=== PATIENT | female | born 1975 | race Caucasian/White ===

== ENCOUNTER 2017-04-12 14:19 | Emergency (ER) | payer MEDICARE ==
[2016-07-02 16:57] VITALS: BP 120/89
[~2017-04-12 14:19] MED LIST: ACET-704 PO; CYCL-331 PO
== END 2017-04-12 14:35 | disposition home or self-care (01) ==
LOC: ER 14:19
DX: R10.9 Unspecified abdominal pain (principal); Z53.21 Procedure and treatment not carried out due to patient leaving prior to being seen by health care provider

== ENCOUNTER 2017-04-14 15:47 | Emergency (ER) | payer MEDICARE ==
[~2017-04-14] VITALS: Ht 160 cm; Wt 61.2 kg
[2017-04-14 15:47] VITALS: BP 106/68
--- NOTE | 2017-04-14 17:13 | EKG ---
[address] [address] Test Date: 2017-04-14 Test Time: 16:12:22 Pat Name: EMELINA JIMENES Department: Room: Gender: F Snout Puller: DONNY : 1975 Requested By: PRATEEK BOYLE Order Number: [id number] Reading MD: Yang Alfaro Measurements Intervals Premier Rate: 109 P: 53 CT: 118 QRS: 24 QRSD: 76 T: 38 QT: 320 QTc: 432 Interpretive Statements SINUS TACHYCARDIA NON-SPECIFIC ST/T CHANGES Electronically Signed On 04-20-2017 8:37:11 CDT by Yang Alfaro
[2017-04-14 17:28] LABS: BASO # 0.1 x10^3/uL (0.0-0.2); BASO % 1 % (0-3); EOS # 0.1 x10^3/uL (0.0-0.7); EOS % 1 % (0-3); HEMATOCRIT 41.6 % (36.0-47.0); HEMOGLOBIN 14.1 g/dL (12.0-15.5); LYMPH # 1.5 x10^3/uL (1.0-4.8); LYMPH % 16 % (24-48); MEAN CORPUSCULAR HEMOGLOBIN 31 pg (25-35); MEAN CORPUSCULAR HGB CONC 34 g/dL (31-37); MEAN CORPUSCULAR VOLUME 91 fL (79-100); MONO # 0.6 x10^3/uL (0.0-1.1); MONO % 6 % (0-9); NEUT # 7.3 x10^3uL (1.8-7.7); NEUT % 77 % (31-73); PLATELET COUNT 404 x10^3/uL (140-400); RED BLOOD COUNT 4.56 x10^6/uL (3.50-5.40); RED CELL DISTRIBUTION WIDTH 13.4 % (11.5-14.5); WHITE BLOOD COUNT 9.5 x10^3/uL (4.0-11.0)
[2017-04-14 17:36] LABS: ALBUMIN 3.4 g/dL (3.4-5.0); ALBUMIN/GLOBULIN RATIO 0.9 (1.0-1.7); CREATININE 0.7 mg/dL (0.6-1.0); GFR 91.3; POTASSIUM 3.3 mmol/L (3.5-5.1); TOTAL BILIRUBIN 0.8 mg/dL (0.2-1.0)
[2017-04-14 17:44] LABS: BILIRUBIN,URINE NEG (NEG); CLARITY,URINE CLEAR; COLOR,URINE COLORLESS; GLUCOSE,URINE NEG (NEG); NITRITE,URINE NEG (NEG); RBC,URINE 0 /HPF (0-2); UROBILINOGEN,URINE 0.2 mg/dL (0.2 mg/dL)
[2017-04-14 17:45] LABS: BACTERIA,URINE FEW /HPF (0-FEW); SQUAMOUS EPITHELIAL CELL,UR MANY /LPF; WBC,URINE OCC /HPF (0-4)
[2017-04-14 18:14] LABS: AMPHETAMINE/METHAMPHETAMINE NEG (NEG); BARBITURATES NEG (NEG); BENZODIAZEPINES NEG (NEG); CANNABINOIDS NEG (NEG); COCAINE NEG (NEG); METHADONE NEG (NEG); OPIATES NEG (NEG); PHENCYCLIDINE NEG (NEG)
[2017-04-14 18:16] LABS: ACETAMIN < 2.0 mcg/mL (10-30); ETHANOL 12 mg/dL (0-10)
--- NOTE | 2017-04-14 18:51 | PHYS DOC ---
Past History Past Medical History: Arthritis, Bipolar, Depression, Schizophrenia, Other Past Surgical History: Appendectomy, Hysterectomy, Tubal ligation, Other Smoking: Cigarettes Alcohol Use: None Drug Use: None Adult General Chief Complaint Chief Complaint: OVERDOSE HPI HPI Patient is a 41 year old FEMALE who presents with abusing her prescription medications. She has had prior visits here and at [facility] today (records received). She has chronic abdominal pain for which she has been seeking narcotic pain medications. She also takes chronic benzodiazepine meds. Today she was seen at 1443 PM at [facility]. She was just admitted there 03/30/17 prior to that with abdominal pain. She has had CT and US of the abdomen (all negative) ; EGD in March (negative) and lab. She had a repeat US done today that was normal. PIPIDA scan was also negative. She was given an oxycodone there po. Her meds at home that she has access to include: [place], oxcarbazepine, diazepam, lorazepam, hyoscyamine, methocarbamol. She states that she took her meds today "to make the pain go away". She also drank "a large bottle of alcohol." DENIES suicidal attempt or ideation. She is here with her daughter. Review of Systems Review of Systems Patient not answering specific questions due to sedation Allergies Allergies Allergies Coded Allergies Type Severity Reaction Last Updated Verified Penicillins Allergy Unknown 07/02/16 Yes Sulfa (Sulfonamide Antibiotics) Allergy Unknown 07/02/16 Yes azithromycin Allergy Unknown 07/02/16 Yes hydrocodone Allergy Unknown 07/02/16 Yes ketorolac Allergy Unknown 07/02/16 Yes lamotrigine Allergy Unknown 07/02/16 Yes nitrofurantoin Allergy Unknown 07/02/16 Yes tramadol Allergy Unknown 07/02/16 Yes Physical Exam Physical Exam Constitutional: Well developed, well nourished, no acute distress, non-toxic appearance. Sleepy but easily arousable. HENT: Normocephalic, atraumatic, bilateral external ears normal, oropharynx moist, no oral exudates, nose normal. Eyes: PERRLA, EOMI, conjunctiva normal, no discharge. Neck: Normal range of motion, no tenderness, supple, no stridor. Cardiovascular:Heart rate regular rhythm, no murmur Lungs & Thorax: Bilateral breath sounds clear to auscultation Abdomen: Bowel sounds normal, soft, no tenderness, no masses, no pulsatile masses. Skin: Warm, dry, no erythema, no rash. Back: No tenderness, no CVA tenderness. Extremities: No tenderness, no cyanosis, no clubbing, ROM intact, no edema. Neurologic: Alert and oriented X 3, normal motor function, normal sensory function, no focal deficits noted. Sleepy but arousable. Psychologic: Denies suicidal attempt. Current Patient Data Vital Signs Vital Signs Date Time Temp Pulse Resp B/P (MAP) Pulse Ox O2 Delivery O2 Flow Rate FiO2 04/14/17 15:47 99.4 113 18 96 Room Air Lab Results Laboratory Tests Test 04/14/17 16:00 04/14/17 16:15 Urine Collection Type Unknown Urine Color Colorless Urine Clarity Clear Urine pH 6.0 Urine Specific [place] <=1.005 Urine Protein Neg (NEG-TRACE) Urine Glucose (UA) Neg mg/dL (NEG) Urine Ketones (Stick) Neg mg/dL (NEG) Urine Blood Neg (NEG) Urine Nitrite Neg (NEG) Urine Bilirubin Neg (NEG) Urine Urobilinogen Dipstick 0.2 mg/dL (0.2 mg/dL) Urine Leukocyte Esterase Neg (NEG) Urine RBC 0 /HPF (0-2) Urine WBC Occ /HPF (0-4) Urine Squamous Epithelial Cells Many /LPF Urine Bacteria Few /HPF (0-FEW) Urine Opiates Screen Neg (NEG) Urine Methadone Screen Neg (NEG) Urine Barbiturates Neg (NEG) Urine Phencyclidine Screen Neg (NEG) Urine Amphetamine/Methamphetamine Neg (NEG) Urine Benzodiazepines Screen Neg (NEG) Urine Cocaine Screen Neg (NEG) Urine Cannabinoids Screen Neg (NEG) Urine Ethyl Alcohol Pos (NEG) White Blood Count 9.5 x10^3/uL (4.0-11.0) Red Blood Count 4.56 x10^6/uL (3.50-5.40) Hemoglobin 14.1 g/dL (12.0-15.5) Hematocrit 41.6 % (36.0-47.0) Mean Corpuscular Volume 91 fL (79-100) Mean Corpuscular Hemoglobin 31 pg (25-35) Mean Corpuscular Hemoglobin Concent 34 g/dL (31-37) Red Cell Distribution Width 13.4 % (11.5-14.5) Platelet Count 404 x10^3/uL (140-400) H Neutrophils (%) (Auto) 77 % (31-73) H Lymphocytes (%) (Auto) 16 % (24-48) L Monocytes (%) (Auto) 6 % (0-9) Eosinophils (%) (Auto) 1 % (0-3) Basophils (%) (Auto) 1 % (0-3) Neutrophils # (Auto) 7.3 x10^3uL (1.8-7.7) Lymphocytes # (Auto) 1.5 x10^3/uL (1.0-4.8) Monocytes # (Auto) 0.6 x10^3/uL (0.0-1.1) Eosinophils # (Auto) 0.1 x10^3/uL (0.0-0.7) Basophils # (Auto) 0.1 x10^3/uL (0.0-0.2) Sodium Level 141 mmol/L (136-145) Potassium Level 3.3 mmol/L (3.5-5.1) L Chloride Level 106 mmol/L (98-107) Carbon Dioxide Level 28 mmol/L (21-32) Anion Gap 7 (6-14) Blood Urea Nitrogen 6 mg/dL (7-20) L Creatinine 0.7 mg/dL (0.6-1.0) Estimated GFR (Cockcroft-Gault) 91.3 BUN/Creatinine Ratio 9 (6-20) Glucose Level 94 mg/dL (70-99) Calcium Level 9.0 mg/dL (8.5-10.1) Total Bilirubin 0.8 mg/dL (0.2-1.0) Aspartate Amino Transferase (AST) 62 U/L (15-37) H Alanine Aminotransferase (ALT) 79 U/L (14-59) H Alkaline Phosphatase 75 U/L (46-116) Total Protein 7.0 g/dL (6.4-8.2) Albumin 3.4 g/dL (3.4-5.0) Albumin/Globulin Ratio 0.9 (1.0-1.7) L Salicylates Level 2.0 mg/dL (2.8-20.0) L Salicylate Last Dose Date 04/14/17 Salicylate Last Dose Time 174 Acetaminophen Level < 2.0 mcg/mL (10-30) L Acetaminophen Last Dose Date 04/14/17 Acetaminophen Last Dose Time 1748 Ethyl Alcohol Level 12 mg/dL (0-10) H EKG EKG EKG interpreted by myself at shift change: Sinus tachycardia, rate 109; non specific ST changes; no acute ST elevation Course & Med Decision Making Course & Med Decision Making Evaluated patient upon my arrival on shift. She was here and lab ordered by my colleague prior to my arrival on shift. Patient is sleepy but will arouse and talk with me. She clearly has a prescription abuse problem. Daughter is here and I spoke with her. Plan is to allow her to wake up here and then given referrals for substance abuse/abuse of prescription drugs. Rx meds were given to the DAUGHTER to monitor. At 1930 PM: vomiting here; zofran IV. P 93, sat 100%. IV NS infused. Patient is ready for discharge BUT ASKING FOR SOMETHING FOR PAIN. SADLY SHE HAS AN ADDICTION. I informed her that she WILL NOT be receiving any narcotics from myself here. Dragon Disclaimer Dragon Disclaimer This chart was dictated in whole or in part using Voice Recognition software in a busy, high-work load, and often noisy Emergency Department environment. It may contain unintended and wholly unrecognized errors or omissions. Departure Departure: Impression: Primary Impression: Opiate misuse Additional Impressions: Alcohol abuse Chronic pain syndrome Disposition: 01 HOME, SELF-CARE Condition: STABLE Referrals: MEET BARBA MD (PCP) Patient Instructions: Substance Abuse-Brief Additional Instructions: CALL THE [facility] FOR ASSISTANCE WITH YOUR PRESCRIPTION DRUG MISUSE Problem Qualifiers ORIN SHIRLEY MD Apr 14, 2017 18:51
[2017-04-14] MEDS ORDERED: ONDANSETRON PF 4 MG/2 ML VIAL. ONE (19:18)
[2017-04-14] MEDS ORDERED: IV NORMAL SALINE 1,000ML 1,000 ML IV ONE (19:45)
[2017-04-14] MEDS ORDERED: ONDANSETRON PF 4 MG/2 ML VIAL. IV ONE (19:45)
== END 2017-04-14 20:15 | disposition home or self-care (01) ==
LOC: ER 15:47 → EEVIPCON 15:47 → ER 20:15
DX: F11.10 Opioid abuse, uncomplicated (principal); F10.10 Alcohol abuse, uncomplicated; G89.4 Chronic pain syndrome; F20.9 Schizophrenia, unspecified; F31.9 Bipolar disorder, unspecified; M19.90 Unspecified osteoarthritis, unspecified site; F17.210 Nicotine dependence, cigarettes, uncomplicated; Z90.49 Acquired absence of other specified parts of digestive tract; Z98.51 Tubal ligation status; Z88.6 Allergy status to analgesic agent; Z88.1 Allergy status to other antibiotic agents; Z88.5 Allergy status to narcotic agent; Z88.0 Allergy status to penicillin; Z88.2 Allergy status to sulfonamides; Z88.8 Allergy status to other drugs, medicaments and biological substances
CPT/HCPCS: 36415; 80053; 80307; 81001; 85025; 93005; 96361; 96374; 99285; G0480; J2405; G0479; J7030

== ENCOUNTER 2017-06-01 23:45 | Emergency (ER) | payer MEDICARE ==
[~2017-06-01] VITALS: Ht 160 cm; Wt 72.3 kg
[~2017-06-01 23:45] MED LIST changes: -0.9 % SODIUM CHLORIDE 10 ML VIAL ONE; -DEXAMETHASONE SOD PHOS 4 MG/ML VIAL ONE; -FLUO10CA13 PO; -IOHEXOL 300 MG/ML 50 ML VIAL. ONE; -LIDOCAINE 1% PF 30 ML VIAL. ONE; -LITH150C PO; -METH4TAB2 PO; -OXYC5TAB95 PO
[2017-06-02] MEDS ORDERED: LITH150C PO (00:07)
[2017-06-02] MEDS ORDERED: FLUO10CA13 PO (00:07)
--- NOTE | 2017-06-02 00:08 | PHYS DOC ---
Past History Past Medical History: Arthritis, Bipolar, Depression, Schizophrenia, Other Past Surgical History: Appendectomy, Hysterectomy, Tubal ligation, Other Smoking: Cigarettes Alcohol Use: None Drug Use: None Adult General Chief Complaint Chief Complaint: PAIN CONTROL HPI HPI Patient is a 41 year old female who presents with complaint of neck and back pain. Patient has history of chronic degenerative disc disease in her cervical, thoracic, and lumbar spine. Patient states that she has had 2 previous back surgeries in her lower lumbar spine which had been done in [place] where she states she is originally from. The patient states that she recently moved within the last year to this area. 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 The patient was referred to have intra-articular injections completed today. The patient states since her injection she has had worsening pain in her back along her neck and has had tingling from her left upper extremity. Patient states that she has had history of this with her neck issues but states that it is worse after her injection today. Patient denies any fevers, loss of bowel or bladder control, saddle anesthesia, or foot drop. Patient rates pain as 10 out of 10. Patient states she is not having any medications at home. Patient lists several allergies to multiple pain medications. Patient also of note was seen on April 14 here in the emergency department and treated for opiate misuse. Review of Systems Review of Systems Constitutional: Denies fever or chills [] Eyes: Denies change in visual acuity, redness, or eye pain [] HENT: Denies nasal congestion or sore throat [] Respiratory: Denies cough or shortness of breath [] Cardiovascular: Denies chest pain or edema[] GI: Denies abdominal pain, nausea, vomiting, bloody stools or diarrhea [] : Denies dysuria or hematuria [] Musculoskeletal: Back pain, neck pain[] Integument: Denies rash or skin lesions [] Neurologic: Headache, numbness in left upper extremity, denies weakness, difficulty with speech or swallowing[] Current Medications Current Medications Current Medications Medications (Trade) Dose Ordered Sig/Ramirez Start Time Stop Time Status Last Admin Dose Admin Dexamethasone Sodium Phosphate (Decadron) 12 mg 1X ONCE 06/02/17 00:15 06/02/17 00:16 UNV Hydromorphone HCl (Dilaudid) 1 mg 1X ONCE 06/02/17 00:15 06/02/17 00:16 UNV Allergies Allergies Allergies Coded Allergies Type Severity Reaction Last Updated Verified Penicillins Allergy Unknown 07/02/16 Yes Sulfa (Sulfonamide Antibiotics) Allergy Unknown 07/02/16 Yes acetaminophen Allergy Unknown 06/02/17 Yes azithromycin Allergy Unknown 07/02/16 Yes hydrocodone Allergy Unknown 07/02/16 Yes ibuprofen Allergy Unknown 06/02/17 Yes ketorolac Allergy Unknown 07/02/16 Yes lamotrigine Allergy Unknown 07/02/16 Yes nitrofurantoin Allergy Unknown 07/02/16 Yes tramadol Allergy Unknown 07/02/16 Yes Physical Exam Physical Exam Constitutional: Alert, afebrile, appears in moderate discomfort. [] HENT: Normocephalic, atraumatic, bilateral external ears normal, oropharynx moist, no oral exudates, nose normal. [] Eyes: PERRLA, EOMI, conjunctiva normal, no discharge. [] Neck: Normal range of motion, no tenderness, supple, no stridor. [] Cardiovascular:Heart rate regular rhythm, no murmur [] Lungs & Thorax: Bilateral breath sounds clear to auscultation [] Abdomen: Bowel sounds normal, soft, no tenderness, no masses, no pulsatile masses. [] Skin: Warm, dry, no erythema, no rash. [] Back: No midline tenderness, bilateral lower lumbar paraspinous muscle tenderness to palpation, no flank ecchymosis. [] Extremities: No tenderness, no cyanosis, no clubbing, ROM intact, no edema. [] Neurologic: Alert and oriented X 3, normal gait, normal motor function, normal sensory function, no focal deficits noted. [] Current Patient Data Vital Signs Vital Signs Date Time Temp Pulse Resp B/P (MAP) Pulse Ox O2 Delivery O2 Flow Rate FiO2 06/02/17 00:28 82 16 117/65 (82) 97 Room Air Lab Results Laboratory Tests Test 06/01/17 23:57 Urine Opiates Screen Neg Urine Methadone Screen Neg Urine Barbiturates Neg Urine Phencyclidine Screen Neg Urine Amphetamine/Methamphetamine Neg Urine Benzodiazepines Screen Neg Urine Cocaine Screen Neg Urine Cannabinoids Screen Neg Urine Ethyl Alcohol Neg Current Medications Medications (Trade) Dose Ordered Sig/Ramirez Route PRN Reason Start Time Stop Time Status Last Admin Dose Admin Hydromorphone HCl (Dilaudid) 1 mg 1X ONCE IM 06/02/17 00:30 06/02/17 00:31 DC 06/02/17 00:25 Dexamethasone Sodium Phosphate (Decadron) 12 mg 1X ONCE IM 06/02/17 00:30 06/02/17 00:31 DC 06/02/17 00:26 EKG EKG Not performed[] Radiology/Procedures Radiology/Procedures Not performed[] Course & Med Decision Making Course & Med Decision Making Pertinent Labs and Imaging studies reviewed. (See chart for details) Patient was given IM Decadron and IM Dilaudid in the emergency department with improvement pain. Patient tox screen was negative. The patient has a significant noted listed drug allergies, however the patient does appear to be following with her primary doctor and has been exploring other avenues of treatment for her chronic pain. I do not see any evidence of acute neurologic symptoms that are concerning for acute spinal cord impingement. The patient's symptoms appear to be due to worsening radiculopathy without any motor deficits at this time. The patient will be continued on Medrol Dosepak. I have also agreed to prescribe patient a one-time prescription for Roxicodone 5 mg. Advised follow-up tomorrow with the patient's primary doctor for reevaluation and return to the emergency department for any worsening or severe symptoms. Agent voiced understanding and in agreement with treatment plan. Dragon Disclaimer Dragon Disclaimer This chart was dictated in whole or in part using Voice Recognition software in a busy, high-work load, and often noisy Emergency Department environment. It may contain unintended and wholly unrecognized errors or omissions. Departure Departure: Impression: Primary Impression: Acute exacerbation of chronic low back pain Additional Impression: Cervical radiculopathy Disposition: 01 HOME, SELF-CARE Condition: IMPROVED Referrals: MEET BARBA MD (PCP) Patient Instructions: Back Pain, Adult, Cervical Radiculopathy Additional Instructions: Follow-up with your primary doctor tomorrow for reevaluation. Return to the emergency department for any worsening symptoms. Scripts Oxycodone Hcl (OXYCODONE HCL) 5 Mg Tablet 1 TAB PO Q4-6HRS Y for PAIN, #15 TAB Prov: BUNNY ECHEVARRIA MD 06/02/17 Methylprednisolone (MEDROL) 4 Mg Tab.ds.pk 1 PKG PO UD, #1 PKG Prov: BUNNY ECHEVARRIA MD 06/02/17 Problem Qualifiers BUNNY ECHEVARRIA MD Jun 02, 2017 00:08
[2017-06-02 00:28] VITALS: BP 117/65
[2017-06-02] MEDS ORDERED: DEXAMETHASONE SOD PHOS 10 MG/ML VIAL IM ONE (00:30)
[2017-06-02] MEDS ORDERED: HYDROmorphone PF 1 MG/ML DISP.SYRIN IM ONE (00:30)
[2017-06-02 00:34] LABS: BARBITURATES NEG (NEG); BENZODIAZEPINES NEG (NEG); CANNABINOIDS NEG (NEG); COCAINE NEG (NEG); METHADONE NEG (NEG); OPIATES NEG (NEG); PHENCYCLIDINE NEG (NEG)
[2017-06-02 00:36] LABS: AMPHETAMINE/METHAMPHETAMINE NEG (NEG)
[2017-06-02] MEDS ORDERED: METH4TAB2 PO (00:51)
[2017-06-02] MEDS ORDERED: OXYC5TAB95 PO (00:51)
[2017-06-02] MEDS ORDERED: oxyCODONE IR 5 MG TABLET PO ONE (01:00)
== END 2017-06-02 01:00 | disposition home or self-care (01) ==
LOC: ER 23:45
DX: G89.29 Other chronic pain (principal); M54.5 Low back pain; M54.12 Radiculopathy, cervical region; F20.9 Schizophrenia, unspecified; F31.9 Bipolar disorder, unspecified; M19.90 Unspecified osteoarthritis, unspecified site; F17.210 Nicotine dependence, cigarettes, uncomplicated; Z98.890 Other specified postprocedural states; Z88.0 Allergy status to penicillin; Z88.2 Allergy status to sulfonamides; Z88.1 Allergy status to other antibiotic agents; Z88.5 Allergy status to narcotic agent; Z88.6 Allergy status to analgesic agent; Z88.8 Allergy status to other drugs, medicaments and biological substances
CPT/HCPCS: 36415; 80307; 96372; 99284; J1100; J1170; G0479

== ENCOUNTER → 2017-06-01 | Outpatient (CLI) | payer MEDICARE ==
[~2017-06-01] MED LIST changes: +0.9 % SODIUM CHLORIDE 10 ML VIAL ONE; +DEXAMETHASONE SOD PHOS 4 MG/ML VIAL ONE; +FLUO10CA13 PO; +IOHEXOL 300 MG/ML 50 ML VIAL. ONE; +LIDOCAINE 1% PF 30 ML VIAL. ONE; +LITH150C PO; +METH4TAB2 PO; +OXYC5TAB95 PO
== END | disposition home or self-care (01) ==
LOC: SURG 13:35
PROVIDERS: ATTEND Anesthesiology
DX: M54.12 Radiculopathy, cervical region (principal); J45.909 Unspecified asthma, uncomplicated; M19.91 Primary osteoarthritis, unspecified site
CPT/HCPCS: 62321; 99204; J1100; J2001; Q9967

== ENCOUNTER 2021-01-06 17:15 | Emergency (ER) | payer MEDICAID, MEDICARE, OTHER ==
[~2021-01-06] VITALS: Ht 162.6 cm; Wt 73.9 kg
[~2021-01-06 17:15] MED LIST changes: +FLUO10CA13 PO; +LITH150C PO; +METH4TAB2 PO; +OXYC5TAB4 PO
--- NOTE | 2021-01-06 18:05 | PHYS DOC ---
Past History Past Medical History: Anxiety, Arthritis, Bipolar, Depression, Schizophrenia, Other Past Surgical History: Appendectomy, Cholecystectomy, Hysterectomy, Tubal ligation, Other Additional Past Surgical Histo: UNKNOWN Smoking: Cigarettes Alcohol Use: None Drug Use: None General Adult EDM: Chief Complaint: ALTERED MENTAL STATUS HPI: HPI: ".. I fucked up... I did my psych and sleep meds before I went to [employer]..." Patient is a 45 year old female who presents with increase fatigue and sedation after taking her psych meds. Pt. has not taken psych meds for some time. Recently also started on Thorazine. Pt found sleepig on [employer]. floor. Patient was very sedated and transported to the emergency department for further evaluation. Patient was extremely sedated but this gradually cleared with observation and IV fluids. Friend arrived and advised that she was at her normal baseline at time of discharge.. Patient has past medical history of depression, anxiety, bipolar disorder, schizoaffective disorder, constipation, polysubstance abuse and tobacco use. Does have multiple allergies to medications. Patient normally follows with Dr. Esquivel for care. Review of Systems: Review of Systems: Constitutional: Denies fever or chills Eyes: Denies change in visual acuity HENT: Denies nasal congestion or sore throat Respiratory: Denies cough or shortness of breath Cardiovascular: Denies chest pain or edema GI: Denies abdominal pain, nausea, vomiting, bloody stools or diarrhea : Denies dysuria Musculoskeletal: Denies back pain or joint pain Integument: Denies rash Neurologic: Denies headache, focal weakness or sensory changes Endocrine: Denies polyuria or polydipsia Lymphatic: Denies swollen glands Psychiatric: History of anxiety. Patient denies any suicidal or homicidal ideation Family History: Family History: Noncontributory to presentation Current Medications: Current Meds: See nursing for home meds Allergies: Allergies: Allergies Coded Allergies Type Severity Reaction Last Updated Verified Penicillins Allergy Unknown 04/22/18 Yes Sulfa (Sulfonamide Antibiotics) Allergy Unknown 04/22/18 Yes acetaminophen Allergy Unknown 04/22/18 Yes azithromycin Allergy Unknown 04/22/18 Yes buspirone Allergy Unknown 04/22/18 Yes hydrocodone Allergy Unknown 04/22/18 Yes ibuprofen Allergy Unknown 04/22/18 Yes ketorolac Allergy Unknown 04/22/18 Yes lamotrigine Allergy Unknown 04/22/18 Yes nitrofurantoin Allergy Unknown 04/22/18 Yes tramadol Allergy Unknown 04/22/18 Yes Uncoded Allergies Type Severity Reaction Last Updated Verified flu shot Allergy Unknown 04/22/18 Physical Exam: PE: Constitutional: , no acute distress, very sedate in appearance. [] HENT: Normocephalic, atraumatic, bilateral external ears normal, oropharynx moist, no oral exudates, nose normal. Poor dentition Eyes: PERRLA, EOMI, conjunctiva normal, no discharge. [] Neck: Normal range of motion, no tenderness, supple, no stridor. [] Cardiovascular:Heart rate regular rhythm, no murmur [] bedside monitor shows a sinus rhythm in the 65-70 range. Lungs & Thorax: Bilateral breath sounds equal apex with scattered wheezes on auscultation [] Abdomen: Bowel sounds normal, soft, no tenderness, no masses, no pulsatile masses. [] Skin: Warm, dry, no erythema, no rash. Tattoos Back: No tenderness, no CVA tenderness. [] Extremities: No tenderness, no cyanosis, no clubbing, ROM intact, no edema. [] Neurologic: Extremely sedated initially, this gradually cleared and became alert and oriented x3. The patient eventually alert enough to follow instructions. Moves all extremities on request, has distal sensory, no new focal deficits noted by patient or her friend. Right-hand dominant. DTRs +2 patella and brachial. Backrest Assembler equal. Patient ambulatory without problems at time of discharge. Psychologic: Affect extremely sedated, judgement initially judgment impaired,, mood flat. ( Patient sedated state cleared with time, observation and IV fluids.) Current Patient Data: Vital Signs: Vital Signs Date Time Temp Pulse Resp B/P (MAP) Pulse Ox O2 Delivery O2 Flow Rate FiO2 01/06/21 17:15 99.0 85 20 108/69 (82) 98 Room Air EKG: EKG: My interpretation EKG shows sinus rhythm at 69 bpm no acute morphology. [] Radiology/Procedures: Radiology/Procedures: Patient refused x-ray or CT [] Heart Score: C/O Chest Pain: No HEART Score for Chest Pain: HEART Score for Chest Pain Response (Comments) Value History Slighlty/Non-Suspicious 0 ECG Normal 0 Age < 45 0 Risk Factors 1 or 2 Risk Factors 1 Troponin < Normal Limit 0 Total 1 Risk Factors: Risk Factors: DM, Current or recent (<one month) smoker, HTN, HLP, family history of CAD, obesity. Risk Scores: Score 0 - 3: 2.5% MACE over next 6 weeks - Discharge Home Score 4 - 6: 20.3% MACE over next 6 weeks - Admit for Clinical Observation Score 7 - 10: 72.7% MACE over next 6 weeks - Early Invasive Strategies Course & Med Decision Making: Course & Med Decision Making Pertinent Labs and Imaging studies reviewed. (See chart for details) Patient avoid further sedated meds tonight. Patient take meds as directed. Do not take meds before she goes shopping. Keep follow-up primary care. Return if any concerns. Patient discharged to the care of her friend.. Impression: 1. Oversedation-secondary to improper timing and use of her home meds. 2. History of depression 3. History of bipolar disorder 4. History of anxiety 5. History of insomnia 6. Elevated magnesium level 2.5 7. History of schizoaffective disorder 8. Drug screen positive for methamphetamine 9. Tobacco Use [] Dragon Disclaimer: Dragon Disclaimer: This electronic medical record was generated, in whole or in part, using a voice recognition dictation system. Departure Departure: Referrals: MEET BARBA MD (PCP) Tereza Disclaimer This chart was dictated in whole or in part using Voice Recognition software in a busy, high-work load, and often noisy Emergency Department environment. It may contain unintended and wholly unrecognized errors or omissions. Dragon Disclaimer This chart was dictated in whole or in part using Voice Recognition software in a busy, high-work load, and often noisy Emergency Department environment. It may contain unintended and wholly unrecognized errors or omissions. MICHELLE DURON MD January 06, 2021 18:04
[2021-01-06 18:18] LABS: BASO # 0.1 x10^3/uL (0.0-0.2); BASO % 1 % (0-3); EOS # 0.1 x10^3/uL (0.0-0.7); EOS % 2 % (0-3); HEMATOCRIT 40.1 % (36.0-47.0); HEMOGLOBIN 13.6 g/dL (12.0-15.5); LYMPH # 2.4 x10^3/uL (1.0-4.8); LYMPH % 36 % (24-48); MEAN CORPUSCULAR HEMOGLOBIN 31 pg (25-35); MEAN CORPUSCULAR HGB CONC 34 g/dL (31-37); MEAN CORPUSCULAR VOLUME 92 fL (79-100); MONO # 0.9 x10^3/uL (0.0-1.1); MONO % 13 % (0-9); NEUT # 3.1 x10^3uL (1.8-7.7); NEUT % 48 % (31-73); PLATELET COUNT 426 x10^3/uL (140-400); RED BLOOD COUNT 4.35 x10^6/uL (3.50-5.40); RED CELL DISTRIBUTION WIDTH 12.9 % (11.5-14.5); WHITE BLOOD COUNT 6.6 x10^3/uL (4.0-11.0)
[2021-01-06 18:28] LABS: CREATININE 0.6 mg/dL (0.6-1.0); GFR 107.2; POTASSIUM 3.9 mmol/L (3.5-5.1)
--- NOTE | 2021-01-06 18:40 | EKG ---
[address] [address] Test Date: 2021-01-06 Test Time: 18:31:30 Pat Name: EMELINA JIMENES Department: Room: Gender: F Receiving And Processing Supervisor: SORAYA : 1975 Requested By: MICHELLE DURON Order Number: [id number] Reading MD: Measurements Intervals [place] Rate: 69 P: 70 SC: 144 QRS: 57 QRSD: 78 T: 65 QT: 380 QTc: 409 Interpretive Statements SINUS RHYTHM NORMAL ECG RI6.02 No previous ECG available for comparison
[2021-01-06 18:44] LABS: MAGNESIUM 2.5 mg/dL (1.8-2.4)
[2021-01-06 19:02] LABS: BARBITURATES NEG (NEG); BENZODIAZEPINES NEG (NEG); CANNABINOIDS NEG (NEG); COCAINE NEG (NEG); METHADONE NEG (NEG); OPIATES NEG (NEG); PHENCYCLIDINE NEG (NEG)
[2021-01-06 19:03] LABS: AMPHETAMINE/METHAMPHETAMINE POS (NEG)
[2021-01-06 19:16] VITALS: BP 13/69
[2021-01-06 19:17] LABS: BACTERIA,URINE 0 /HPF (0-FEW); BILIRUBIN,URINE NEG (NEG); CLARITY,URINE HAZY; COLOR,URINE YELLOW; GLUCOSE,URINE NEG (NEG); NITRITE,URINE NEG (NEG); RBC,URINE OCC /HPF (0-2); SQUAMOUS EPITHELIAL CELL,UR MOD /LPF
== END 2021-01-06 20:05 | disposition home or self-care (01) ==
LOC: ER 17:15
DX: R53.83 Other fatigue (principal); T42.75XA Adverse effect of unspecified antiepileptic and sedative-hypnotic drugs, initial encounter; F31.9 Bipolar disorder, unspecified; F41.9 Anxiety disorder, unspecified; G47.00 Insomnia, unspecified; E83.42 Hypomagnesemia; F20.9 Schizophrenia, unspecified; F15.10 Other stimulant abuse, uncomplicated; M19.90 Unspecified osteoarthritis, unspecified site; F17.210 Nicotine dependence, cigarettes, uncomplicated; Z88.0 Allergy status to penicillin; Z88.2 Allergy status to sulfonamides; Z88.1 Allergy status to other antibiotic agents; Z88.5 Allergy status to narcotic agent; Z88.8 Allergy status to other drugs, medicaments and biological substances; Y92.89 Other specified places as the place of occurrence of the external cause
CPT/HCPCS: 36415; 80048; 80307; 81001; 82553; 83735; 84484; 85025; 87086; 93005; 99285; G0480; P9612